=== PATIENT | female | born 2000 | race Caucasian/White ===

== ENCOUNTER 2022-06-16 12:50 | Emergency (ER) | payer OTHER ==
[2022-06-16] MEDS ORDERED: Ondansetron ODT 4 MG TAB ONE (13:10)
[2022-06-16] MEDS ORDERED: Metoclopramide HCl 10 MG/2 ML VIAL ONE (13:48)
[2022-06-16] MEDS ORDERED: diphenhydrAMINE 50 MG/ML VIAL ONE (13:48)
[2022-06-16 13:51] LABS: #Basophils 0.1 10x3/uL (0.0-0.2); #Monocytes 0.2 10x3/uL (0.0-1.1); #Neutrophils 9.6 10x3/uL (1.5-8.4); %Basophils 0.5 % (0.0-2.0); %Eosinophils 0.1 % (0.0-6.0); %Lymphocytes 12.6 % (18.0-47.0); %Neutrophils 84.5 % (40.0-75.0); Hemoglobin 14.6 g/dL (12.0-15.5); Mean Corpuscular HGB CONC 34.8 g/dL (32.0-36.0); Mean Corpuscular Hemoglobin 31.1 pg (27.0-33.0); Mean Corpuscular Volume 89.1 fl (81.6-98.3); Mean Platelet Volume 9.4 fl (7.4-10.4); Platelet Count 333 10x3/uL (150-450); RBC Distribution Width 11.8 % (11.5-14.5); White Blood Cell (WBC) Count 11.4 10x3/uL (3.5-10.5)
[2022-06-16 14:09] LABS: ALT (SGPT) 23 U/L (8-55); AST (SGOT) 22 U/L (5-34); Albumin 5.4 g/dL (3.5-5.0); Alkaline Phosphatase 50 U/L (40-100); Anion Gap 21 mmol/L (10-20); BUN (Urea Nitrogen) 15 mg/dL (7.0-18.7); Bilirubin, Total 1.2 mg/dL (0.2-1.2); Calc. Creatinine Clearance 0 mL/min (70-130); Calcium 10.2 mg/dL (7.8-10.44); Carbon Dioxide 19 mmol/L (22-29); Chloride 105 mmol/L (98-107); Estimated GFR 90; Globulin 2.6 g/dL (2.4-3.5); Glucose 126 mg/dL (70-105); Lipase 15 U/L (8-78); Potassium 3.8 mmol/L (3.5-5.1); Sodium 141 mmol/L (136-145)
[2022-06-16 16:28] LABS: BHCG - Serum Negative (NEGATIVE); Pregs Control Background? CLEAR/WHITE (CLR/WHITE); Pregs Control Bar Appear? YES (CONTROL BAR)
== END 2022-06-16 16:46 | disposition home or self-care (01) ==
LOC: CSHERS 12:50
DX: R11.2 Nausea with vomiting, unspecified (principal)
CPT/HCPCS: 80053; 83690; 84703; 85025; 96365; 96366; 96375; J1200; J2765; Q0162

== ENCOUNTER 2022-11-21 13:37 | Emergency (ER) | payer OTHER ==
[2022-11-21] MEDS ORDERED: Ketorolac Tromethamine 30 MG/ML VIAL ONE (14:20)
[2022-11-21] MEDS ORDERED: Metoclopramide HCl 10 MG/2 ML VIAL ONE (14:20)
[2022-11-21] MEDS ORDERED: Dexamethasone 10 MG/ML VIAL ONE (14:21)
[2022-11-21 15:06] LABS: BHCG - Serum Negative (NEGATIVE); Pregs Control Background? CLEAR/WHITE (CLR/WHITE); Pregs Control Bar Appear? YES (CONTROL BAR)
[2022-11-21] MEDS ORDERED: diphenhydrAMINE 50 MG/ML VIAL ONE (16:05)
== END 2022-11-21 17:55 | disposition home or self-care (01) ==
LOC: CSHERS 13:37
DX: G43.909 Migraine, unspecified, not intractable, without status migrainosus (principal)
CPT/HCPCS: 36415; 84703; 96365; 96375; J1100; J1200; J1885; J2765